=== PATIENT | male | born 1975 | race Caucasian/White ===

== ENCOUNTER 2021-10-20 10:02 | Emergency (ER) | payer SELFPAY ==
[2021-10-20 10:08] VITALS: BP 137/89; PULSE 87; RESP 16; TEMP 36.4; O2SAT 98
--- NOTE | 2021-10-20 10:15 | ED.GENADUL_ITS ---
Discharge Plan Disposition Patient Disposition: HOME Condition: Stable Discharge Details Clinical Impression: Lumbar strain Primary Care Provider: Wilman Vizcaino ED Provider: Krystina Garay Home Meds and New Rx's Prescriptions: New methocarbamol 500 mg tablet 500 mg PO Q6H PRN (Reason: muscle spasm) Qty: 14 RF: 0 prednisone 20 mg tablet See Rx Instructions .ROUTE .COMPLEX Qty: 18 RF: 0 Discharge Instructions Instructions: Low Back Strain (ED) Additional Instructions: Alternate ice and heat to the affected area(s) several times daily for 20 minutes at a time. Alternate tylenol and aleve as needed and directed for pain. Prescriptions for steroids and muscle relaxers have been sent electronically to your pharmacy. You were also given an oxycodone bottle to go to take for breakthrough pain not relieved with Tylenol or ibuprofen Follow-up with your primary care doctor in 1 week. Return to the emergency department with any worsening or new concerning symptoms such as fever, loss of bowel or bladder function, leg weakness or numbness, worsening pain or any other concerns. Stand Alone Forms: Work Release Discharge Data Discharge Physician: Krystina Garay Medical Decision Making 46-year-old male presents with right-sided lower back pain with radiation to his right thigh over the past 3 days after twisting his back when getting out of his truck 3 days ago. No cauda equina or urinary symptoms. Patient appears uncomfortable with antalgic gait. He is nontoxic-appearing. He has asymmetric SI joint posteriorly consistent likely with spasming of his lower back. He has some tenderness to palpation overlying the right lumbar region and right upper buttock. There is no overlying trauma, cellulitis or rash. He is otherwise neurovascularly intact. Suspect most likely lumbar strain. History and presentation does not appear consistent with cauda equina syndrome, disc herniation or epidural abscess. Do not feel indication for imaging or lab work at this time. Patient given a IM Toradol injection, oral steroids, pain medication and muscle. A prescription for steroids and muscle relaxer sent electronically to his pharmacy. He was given a for 10 bottle of oxycodone to go for breakthrough pain. Advised on importance of keeping flexible and ambulatory but no heavy lifting or prolonged sitting/lying. Advised to follow up with the primary care doctor for re-evaluation. Usual and customary return precautions given prior to discharge. HPI General Mode of arrival: ambulatory . Date/Time Provider Initiated Documentation: 10/20/21 10:02 . Limitations to Documentation: no limitations . Information obtained by: patient . HPI Narrative: Patient is a 46-year-old male who presents with right-sided lower back pain for the past 3 days that started after twisting to get out of his truck. 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 He states he spoke to his employer and they referred him for physical therapy and states he had manipulation of his lower back and now the pain is worse with radiation down the right and anterior thigh. He denies any pain below his knee. He has taken Aleve without relief. Last dose of Aleve at 3 AM. He denies any fever, nausea, vomiting, abdominal pain, urinary symptoms, bowel or bladder incontinence, leg weakness or numbness. He states the pain is mainly worse with walking, bending and standing. He denies any direct fall onto his back. Related Data Home Medications Medication Instructions Recorded Confirmed methocarbamol 500 mg PO Q6H PRN #14 tab 10/20/21 prednisone See Rx Instructions .ROUTE 10/20/21 .COMPLEX #18 tab Previous Rx's Medication Instructions Recorded methocarbamol 500 mg PO Q6H PRN #14 tab 10/20/21 prednisone See Rx Instructions .ROUTE 10/20/21 .COMPLEX #18 tab Allergies Allergy/AdvReac Type Severity Reaction Status Date / Time cephalexin [From Keflex] AdvReac Unverified 10/20/21 10:15 General Stated Complaint: Nk/Back Pain JEANA: 4 Review of Systems All systems reviewed & are unremarkable except as noted in HPI and below Constitutional Constitutional: Reports as per HPI, Denies chills and Denies fever(s) Eyes Eyes: Denies blurry vision ENT Ears, Nose, Mouth, and Throat: Denies dizziness, Denies sore throat and Denies throat swelling Cardiovascular Cardiovascular: Denies chest pain and Denies dyspnea Respiratory Respiratory: Denies cough and Denies dyspnea Gastrointestinal Gastrointestinal: Denies abdominal pain, Denies diarrhea and Denies vomiting Genitourinary Genitourinary: Denies hematuria and Denies dysuria Musculoskeletal Musculoskeletal: Reports back pain and Denies numbness Integumentary/Breasts Skin/Breast: Denies lesions and Denies rash Neurologic Neurologic: Denies dizziness, Denies localized weakness and Denies numbness Allergic/Immunologic Allergic/Immunologic: Denies throat swelling PFSH All Active Problems (Updated 10/20/21 @ 11:11 by Krystina Garay DO) Lumbar strain (Acute) Medical History (Updated 10/20/21 @ 11:11 by Krystina Garay DO) No significant past medical history Surgical History (Updated 10/20/21 @ 10:37 by Krystina Garay DO) H/O shoulder surgery History of foot surgery History of surgery on wrist Social History Smoking/Tobacco Use Status: Current every day Tobacco Type: cigarettes Smoking risk assessment performed?: Yes Substance use type: does not use Exam Const General: cooperative, healthy appearing and no acute distress HENMT Head: normal to inspection Face and sinus: normal facial exam Eyes General: appearance normal, both eyes and all related structures EOM: EOM intact bilaterally Neck Neck: normal visual inspection and No submandibular swelling Lymphatic: no lymphadenopathy noted Chest Chest: normal inspection of the chest and no tenderness Resp Effort & Inspection: normal respiratory effort and able to speak in complete sentences Auscultation: clear to auscultation bilaterally Cardio Rate: regular rate Rhythm: regular rhythm GI Inspection: normal to inspection Palpation: soft, not firm, not rigid and nontender Auscultation: normal bowel sounds Back/Spine/Pelvis Thoracic/Lumbar Spine: thoracic and lumbar spine normal to inspection Back/spine/pelvis image: 1. Tender to palpation. Evaluation of his pelvis posteriorly note that there appears to be a deviation of his left SI joint superiorly compared to the right SI joint likely consistent with spasming. There is no overlying cellulitis, rash or lesions, ecchymosis or hematoma. Skin General skin exam: no rashes or lesions noted Neuro General: patient alert, patient awake and patient oriented x3 Cognition: normal cognition Speech: speech normal Motor: muscle tone normal throughout Sensory Exam: no sensory deficits noted DTR's: Rt Patellar: 1+, Lt Patellar: 1+, Rt Ankle: 1+ and Lt Ankle: 1+ Plantar Reflexes: Equivocal: bilateral (negative babinski b/l ) Other: B/L DP/PT pulses intact. Extrem General: normal to inspection, full ROM, capillary refill normal, no calf tenderness bilaterally and no edema Psych Appearance: grossly normal Mental Status: mental status grossly normal Speech and Movement: speech and movement normal Affect: normal affect Course Vital Signs Vital signs: Vital Signs Temperature 97.5 F L 10/20/21 10:08 Pulse 87 10/20/21 10:08 Respiratory Rate 16 10/20/21 10:08 Blood Pressure 137/89 10/20/21 10:08 Pulse Oximetry 98 10/20/21 10:08 Temperature 97.5 F L 10/20/21 10:08 Temperature Source Skin 10/20/21 10:08 Pulse 87 10/20/21 10:08 Respiratory Rate 16 10/20/21 10:08 Respiratory Effort 10/20/21 10:08 Blood Pressure 137/89 10/20/21 10:08 Blood Pressure Position Sitting 10/20/21 10:08 Pulse Oximetry 98 10/20/21 10:08 Oxygen Delivery Method Room Air 10/20/21 10:08 Oxygen Flow Rate 0 10/20/21 10:08 Pain Level 10 10/20/21 10:08
[2021-10-20] MEDS: diazePAM 5 MG TAB PO (10:45)
[2021-10-20] MEDS: oxyCODONE 5 MG TAB PO (10:48)
[2021-10-20] MEDS: predniSONE 20 MG TAB 60 MG PO (10:48)
[2021-10-20] MEDS: Ketorolac 60 MG/2 ML VIAL IM (10:48)
== END 2021-10-20 11:37 | disposition home or self-care (01) ==
PROVIDERS: Emergency Provider Physician Assistant; PCP Internal Medicine
DX: S39.012A Strain of muscle, fascia and tendon of lower back, initial encounter (principal); X50.1XXA Overexertion from prolonged static or awkward postures, initial encounter
CPT/HCPCS: 96372; 99284; 99283; J1885; J7512

== ENCOUNTER 2024-03-08 09:27 | Emergency (ER) | payer BC, SELFPAY ==
[2024-03-08 09:36] VITALS: BP 127/110; PULSE 76; RESP 15; TEMP 36.6; O2SAT 96
[2024-03-08] MEDS: Ketorolac 15 MG/ML VIAL IVP (10:01)
[2024-03-08] MEDS: Normal Saline 1,000 ML 1000 ML IV (10:01)
--- NOTE | 2024-03-08 10:04 | ED.GENADUL_ITS ---
Discharge Plan Disposition Patient Disposition: Home Condition: Improving Discharge Details Chief Complaint: Male Reproductive Problem Clinical Impression: Abdominal pain, lower Primary Care Provider: Wilman Vizcaino ED Provider: Wai Gillespie Discharge Instructions Instructions: Abdominal Pain (ED) Additional Instructions: Please continue with ibuprofen and Tylenol as needed. Please return to the emergency room for any worsening symptoms. Follow-up close with your primary care physician. HPI General Date/Time Provider Initiated Documentation: 03/08/24 09:48 . HPI Narrative: 48-year-old male presents with several days of suprapubic discomfort and groin discomfort, denies flank pain nausea vomiting denies history of nephrolithiasis. Related Data Allergies Allergy/AdvReac Type Severity Reaction Status Date / Time cephalexin [From Keflex] AdvReac Other (See Unverified 03/08/24 09:40 Comment) General Stated Complaint: Male Reproductive Problem JEANA: 3 Review of Systems Narrative: Review of Systems Constitutional: negative Eyes: negative ENT: negative Cardiovascular: negative Respiratory: negative Gastrointestinal: negative : Pubic discomfort, testicular fullness/groin discomfort Musculoskeletal: negative Skin: negative Neurologic: negative Psych: negative Exam Narrative Exam Narrative: Physical Examination General: alert, awake, cooperative, resting comfortably, no acute distress HEENT: normocephalic, atraumatic; PERRL, EOM intact, conjunctiva normal; no nasal discharge; moist mucous membranes, oral and pharyngeal mucosa normal, tolerating secretions Neck: supple, trachea midline; full ROM Chest: normal to inspection Respiratory: normal respiratory effort, speaking in full sentences GI: abdomen soft, non-tender, non-distended; no palpable mass or hepatosplenome darlyn : Normal external genitalia, no appreciable inguinal hernias, normal testes normal lie normal rugae Skin: no lesions, rashes or trauma appreciated Neuro: AAOx3, normal speech, moving all extremities Extremities: Psych: Appropriate mood and affect Course Vital Signs Vital signs: Vital Signs Temperature 36.6 C 03/08/24 09:36 Pulse 76 03/08/24 09:36 Respiratory Rate 15 03/08/24 09:36 Blood Pressure 127/110 H 03/08/24 09:36 Pulse Oximetry 96 03/08/24 09:36 Temperature 36.6 C 03/08/24 09:36 Temperature Source Oral 03/08/24 09:36 Pulse 76 03/08/24 09:36 Respiratory Rate 15 03/08/24 09:36 Respiratory Effort Normal 03/08/24 09:39 Blood Pressure 127/110 H 03/08/24 09:36 Blood Pressure Position Sitting 03/08/24 09:36 Pulse Oximetry 96 03/08/24 09:36 Oxygen Delivery Method Room Air 03/08/24 09:36 Oxygen Flow Rate 0 03/08/24 09:36 Pain Level 9 03/08/24 09:36 Medical Decision Making 48-year male presents with suprapubic discomfort testicular discomfort and groin discomfort over the last several days, no flank pain no nausea no vomiting no fevers no chills, normal external genitalia no penile discharge, no appreciable inguinal hernias, abdomen soft nontender nondistended, consider nephrolithiasis versus abdominal wall hernia versus inguinal hernia versus less likely UTI or STI. Screening labs urinalysis CT abdomen pelvis fluids analgesia close reassessment 11: 3 7 patient resting comfortably no acute distress. Nondescript subcutaneous streaking and subcutaneous fat near symphysis pubis. No infectious symptoms patient is afebrile without a white count. No overlying skin changes to suggest cellulitis or deep space infection. No evidence of urinary infection. Patient resting comfortably no acute distress currently. Given home care instructions and strict return precautions Quality:SDOH Health Related Social Needs: 2 No Data to Display PFSH All Active Problems (Updated 03/08/24 @ 11:39 by Wai Gillespie MD) Abdominal pain, lower (Acute) Medical History (Updated 03/08/24 @ 11:39 by Wai Gillespie MD) No significant past medical history Surgical History (Updated 10/20/21 @ 10:37 by Krystina Garay DO) History of foot surgery History of surgery on wrist H/O shoulder surgery Social History Smoking/Tobacco Use Status: Current every day Tobacco Type: cigarettes Smoking risk assessment performed?: Yes Alcohol Intake: former Drug use: Daily Substance use type: marijuana Details: at night to help with sleep Housing: house
[2024-03-08 10:10] LABS: Abs Immature Grans 0.04 10^3/uL (0.0-0.06); Absolute Basophil Count 0.05 10^3/uL (0.0-0.2); Absolute Eosinophil Count 0.25 10^3/uL (0.0-0.7); Absolute Lymphocyte Count 1.96 10^3/uL (1.2-3.4); Absolute Monocyte Count 0.79 10^3/uL (0.1-0.8); Absolute Neutrophil Count 6.79 10^3/uL (1.2-6.7); Basophils % 0.5 %; Eosinophils % 2.5 %; HCT 45.3 % (40.0-50.0); Immature Grans % 0.4 %; Lymphocytes % 19.8 %; MCH 32.5 pg (27.0-33.0); MCHC 33.1 % (32.0-36.0); MCV 98 fL (80-95); MPV 8.9 fL (8.0-11.0); Neutrophils % 68.8 %; Platelet Count 221 10^3/uL (130-400); RBC 4.62 10^6/uL (4.36-5.78); RDW 12.6 % (11.8-14.1); RDW-SD 45.1 fL; WBC 9.88 10^3/uL (4.4-10.8)
[2024-03-08 10:32] LABS: ALT 25 U/L (16-63); AST 15 U/L (15-37); Albumin 4.1 g/dL (3.4-5.0); Alkaline Phosphatase 65 U/L (46-116); Anion Gap 4.5 mmol/L (3-11); BUN 15 mg/dL (7-18); Bilirubin, Total 0.3 mg/dL (0.2-1.0); CO2 30.5 mmol/L (21.0-32.0); Calcium 8.9 mg/dL (8.5-10.1); Chloride 104 mmol/L (98-107); Estimated GFR 93.42 (mL/min/1.73m2); Glucose 99 mg/dL (74-106); Sodium 139 mmol/L (136-145); Total Protein 7.3 g/dL (6.4-8.2)
[2024-03-08] MEDS: Normal Saline - Diluent 50 ML VIAL IJ (10:47)
[2024-03-08] MEDS: Omnipaque 350 MG/ML 500 ML BTL-Imaging package IV (10:49)
[2024-03-08 10:54] LABS: Bilirubin Negative (Negative); Blood Negative (Negative); Clarity Clear (Clear); Glucose Negative (Negative); Ketones Negative (Negative); Leukocyte Esterase Negative (Negative); Nitrite Negative (Negative); Urobilinogen 0.2 mg/dL (Up to 0.2)
--- NOTE | 2024-03-08 10:55 | DI.CT_ITS ---
Exam(s) CT ABDOMEN PELVIS W EXAM: CT ABDOMEN PELVIS W CLINICAL HISTORY: suprapubic and groin pain. TECHNIQUE: Imaging Protocol: Axial computed tomography images with coronal and sagittal reformatted images were created and reviewed CONTRAST MATERIAL: Intravenous: Omnipaque-350 100cc Oral: None COMPARISON: No exams were available for comparison FINDINGS: VISUALIZED LUNG BASES: No nodules nor pleural effusions evident. ABDOMEN: There is no ascites. LIVER: There are no focal hepatic lesions evident. No dilated intrahepatic ducts. GALLBLADDER/BILIARY: No obvious gallbladder pathology. CBD is not dilated. PANCREAS: No evidence of pancreatic mass nor dilatation of the pancreatic duct. SPLEEN: Spleen is not enlarged. No obvious intrasplenic lesions. Splenic and portal veins are paten t. ADRENALS: There are no significant adrenal masses. KIDNEYS:There is a solitary benign 6 in the lateral cortex of the left kidney which measures 1.6 x 1. 1 cm. Does not require follow-up. No solid renal masses. No calculi nor hydronephrosis.. ABDOMINAL AORTA: Abdominal aorta is not enlarged. LYMPH NODES:There is no retroperitoneal nor paraaortic adenopathy. ABDOMINAL WALL: No evidence of significant anterior abdominal wall nor inguinal hernia. However, the re is subcutaneous streaking in the fat tissue anterior to the symphysis pubis. This is just above t he level the dorsal aspect of the penis. There is no formed fluid collection at this level. GI: There is no evidence of bowel obstruction, free air, nor abscess. PELVIS: GI: No evidence of appendicitis.No evidence of sigmoid diverticulitis. LYMPH NODES: There is no intrapelvic nor inguinal adenopathy. REPRODUCTIVE: Prostate gland not enlarged. Seminal vesicles unremarkable. URINARY BLADDER: There is relatively uniform thickening of the urinary bladder wall although this may be related to under distension. OSSEOUS: No fractures and no significant osseous lesions. Sacroiliac joints unremarkable. However, there is chronic advanced this patient narrowing at L5-S1 level and moderate disc space narr owing at L3-4 and L4-5 levels. Also no listhesis at these levels. No pars defects. IMPRESSION: 1. There is symmetrical subcutaneous streaking in the subcutaneous fat anterior to the symphysis pubi s level. Appears inflammatory but without evidence of formed fluid collection. There is no radiopaq ue foreign body evident at this level.. No true hernia sac at this level. No inguinal hernias evide nt 2. 3. Chronic advanced disc space narrowing at L5-S1 level. Moderate disc space narrowing L4-5 and L3-4 levels. 4. RADIATION DOSE DELIVERED: 760.06mGy.cm Total DLP DATA REPOSITORY: All CT scans at this facility are submitted to the National Radiology Data Registry (NRDR) Dose Index Registry (DIR) with the [employer] (ACR). RADIATION OPTIMIZATION: All CT scans at this facility use at least one of these dose optimization te chniques: automated exposure control; mA and/or kV adjustment per patient size (includes targeted exa ms where dose is matched to clinical indication); or iterative reconstruction.
== END 2024-03-08 11:44 | disposition home or self-care (01) ==
PROVIDERS: Emergency Provider Emergency Medicine; PCP Internal Medicine
DX: R10.33 Periumbilical pain (principal); F17.210 Nicotine dependence, cigarettes, uncomplicated
CPT/HCPCS: 36415; 80053; 96374; 99285; 74177; 81003; 85025; 99284; J1885

== ENCOUNTER 2025-02-13 16:32 | Emergency (ER) | payer BC, SELFPAY ==
--- NOTE | 2025-02-13 16:30 | DI.RAD_ITS ---
Exam(s) XR CHEST 2V PA LATERAL EXAM: XR CHEST 2V PA LATERAL CLINICAL HISTORY: cough. TECHNIQUE: 2D digital imaging was performed. COMPARISON: No exams were available for comparison FINDINGS: 2 views: Heart size is normal. The mediastinum is not widened. Lungs are clear. No infiltrates nor pleural effusions. There 2 fusion plates across healed midshaft fracture of the left clavicle. IMPRESSION: No acute pulmonary findings. DATA REPOSITORY: RADIATION DOSE DELIVERED:
[2025-02-13 16:37] VITALS: BP 116/70; PULSE 101; RESP 20; TEMP 38.2; O2SAT 89
[2025-02-13 16:41] VITALS: BP 116/70; PULSE 101; RESP 20; TEMP 38.2; O2SAT 89
--- NOTE | 2025-02-13 16:45 | RT.EKG_ITS ---
APPROVED REPORT Exam: Resting ECG Reason for Exam: fever Patient Location: E HR:105 bpm ECG Measurements Heart Rate 105 AXIS RI 132 P 90 QRSd 97 QRS 221 QT 319 T 72 QTc 422 Conclusion Sinus tachycardia 105 right axis no stemi
--- NOTE | 2025-02-13 16:57 | ED.GENADUL_ITS ---
Discharge Plan Disposition Patient Disposition: Home Discharge Details Clinical Impression: Influenza A, Fever, Cough Primary Care Provider: Wilman Vizcaino ED Provider: Fransisco Olivier Home Meds and New Rx's Prescriptions: New promethazine 6.25 mg/5 mL syrup 12.5 mg PO Q6H PRN (Reason: cough) Qty: 120 0RF prednisone 20 mg tablet 40 mg PO DAILY 4 Days Qty: 8 0RF benzonatate 100 mg capsule 100 mg PO TID PRN (Reason: cough) Qty: 30 0RF ondansetron 4 mg tablet,disintegrating 4 mg PO Q6H PRN (Reason: nausea and vomiting) Qty: 30 0RF oseltamivir [Tamiflu] 75 mg capsule 75 mg PO BID 5 Days Qty: 10 0RF Discharge Instructions Instructions: Flu, Adult ED Additional Instructions: Flu test is positive today. Your first dose of Tamiflu was given Will also treat you with steroids and albuterol. Use the albuterol inhaler 2 puffs every 4 hours, with the spacer Cough medication and nausea medication was sent to the pharmacy to help with your symptoms Take medications as prescribed, make sure you are drinking lots of water. Take Motrin or Tylenol as needed for fever Please return to the emergency department with worsening symptoms, worsening cough, shortness of breath or low oxygen saturations HPI General Date/Time Provider Initiated Documentation: 02/13/25 16:42 . Limitations to Documentation: no limitations . Information obtained by: patient . HPI Narrative: 49-year-old gentleman with past medical history of tobacco abuse presents for evaluation of 3 days Cough and fever. Reports onset of symptoms 3 days ago. Reports cough productive of some thick mucus. Fever started the second day. Symptoms also associated with runny nose. He has had decreased appetite and poor sleep. He had an episode of vomiting this morning. No diarrhea. No sick contacts. Related Data Home Medications ?Medication ?Instructions ?Recorded ?Confirmed benzonatate 100 mg capsule 100 mg PO TID PRN cough #30 caps 02/13/25 ondansetron 4 mg disintegrating 4 mg PO Q6H PRN nausea and 02/13/25 tablet vomiting #30 tabs oseltamivir 75 mg capsule (Tamiflu) 75 mg PO BID 5 days #10 caps 02/13/25 prednisone 20 mg tablet 40 mg (2 x 20 mg) PO DAILY 4 days 02/13/25 #8 tabs promethazine 6.25 mg/5 mL oral 12.5 mg (10 mL) PO Q6H PRN cough 02/13/25 syrup #120 mL Previous Rx's ?Medication ?Instructions ?Recorded benzonatate 100 mg capsule 100 mg PO TID PRN cough #30 caps 02/13/25 ondansetron 4 mg disintegrating 4 mg PO Q6H PRN nausea and 02/13/25 tablet vomiting #30 tabs oseltamivir 75 mg capsule (Tamiflu) 75 mg PO BID 5 days #10 caps 02/13/25 prednisone 20 mg tablet 40 mg (2 x 20 mg) PO DAILY 4 days 02/13/25 #8 tabs promethazine 6.25 mg/5 mL oral 12.5 mg (10 mL) PO Q6H PRN cough 02/13/25 syrup #120 mL Allergies Allergy/AdvReac Type Severity Reaction Status Date / Time cephalexin (From Keflex) AdvReac Other (See Unverified 02/13/25 16:40 Comment) General Stated Complaint: RespSymp JEANA: 3 Exam Narrative Exam Narrative: Review of Systems: All systems reviewed & are unremarkable except as noted in HPI and below Well-developed, no acute distress febrile NCAT OP with exudates, mild cervical lymphadenopathy tachycardic, no murmur mild hypoxia, initially 89%> improved to 92% RA Nondistended abdomen No rashes or lesions. no focal neurologic deficits Course Vital Signs Vital signs: Vital Signs Temperature 38.2 C H 02/13/25 16:37 Pulse 101 H 02/13/25 16:37 Respiratory Rate 20 02/13/25 16:37 Blood Pressure 116/70 02/13/25 16:37 Pulse Oximetry 89 L 02/13/25 16:37 Temperature 38.2 C H 02/13/25 16:41 Temperature Source Oral 02/13/25 16:41 Pulse 101 H 02/13/25 16:41 Respiratory Rate 20 02/13/25 16:41 Blood Pressure 116/70 02/13/25 16:41 Blood Pressure Position Sitting 02/13/25 16:41 Pulse Oximetry 89 L 02/13/25 16:41 Oxygen Delivery Method Room Air 02/13/25 16:41 Oxygen Flow Rate 0 02/13/25 16:41 Pain Level 0 02/13/25 16:41 Lab/Test Results Lab/Test Results: 02/13/25 16:43 Blood Blood Culture - Pending 02/13/25 16:43 Blood Blood Culture - Pending Medical Decision Making Emergent evaluation of acute febrile illness and cough. Initial differential includes viral illness, pneumonia, doubt acute intra-abdominal process or UTI. Patient presents with cough and fever. Mild hypoxia initially, but repeat monitor does not demonstrate this. Medication given for fever resolution. Patient was also resuscitated with IV fluids. Lab work was reviewed, no leukocytosis or anemia. VBG without acute respiratory distress. No electrolyte derangement on CMP. Cardiac biomarkers not elevated. Procalcitonin is not elevated. Chest x-ray reviewed and there is no focal consolidation concerning for pneumonia. At this time I do not feel the patient is requiring antibiotics. His viral testing was positive for influenza A. First dose of Tamiflu given in the emergency department. Given his smoking history steroids and bronchodilator treatment was given. After the nebulizer, the patient does report improvement in cough. On reassessment, patient's vital signs have improved and he is feeling much better. Remainder of Tamiflu and steroids sent to the pharmacy in addition to medications for symptomatic care. Course of influenza discussed with the patient, hydration encouraged. Return precautions advised. Follow-up with PCP as needed. Quality:SDOH Health Related Social Needs: No Data to Display PFSH All Active Problems (Updated 02/13/25 @ 18:33 by Fransisco Olivier MD) Cough (Acute) Fever (Acute) Influenza A (Acute) Medical History (Updated 02/13/25 @ 18:33 by Fransisco Olivier MD) No significant past medical history Surgical History (Updated 10/20/21 @ 10:37 by Krystina Garay DO) History of foot surgery History of surgery on wrist H/O shoulder surgery Social History Smoking/Tobacco Use Status: Current every day Tobacco Type: cigarettes Smoking risk assessment performed?: Yes Alcohol Intake: former Drug use: Daily Substance use type: marijuana Details: at night to help with sleep Housing: house [employer] Have you Been Recently Intoxicated or Drunk Within the Last 30 days?: No Have you Ever Experienced Previous Episodes of Alcohol Withdrawal?: No Have you ever Experienced Withdrawal Seizures?: No Have you ever Experienced Delirium Tremens(DT)s?: No Have you ever undergone Alcohol Rehabilitation Treatment (i.e, inpt ot outpatient treatment programs)?: No Have you ever Experienced Blackouts?: No Have you ever Combined Alcohol with other Downers within the last 90 days?: No Have you ever Combined Alcohol with any other Substance of Abuse during the last 90 days?: No Result: 0
[2025-02-13] MEDS: Lactated Ringers 500 ML 1000 ML IV (17:17)
[2025-02-13] MEDS: ACETAMINOPHEN 1,000 MG/100 ML BAG 400 MG IVPB (17:17)
[2025-02-13 17:22] LABS: BE (Venous) 1 mmol/L (-2-3); HCO3 (Venous) 26 mmol/L (23-28); O2 Sat (Venous) 93 %; TCO2 (Venous) 22 mmol/L (24-29); pCO2 (Venous) 39 mmHg (41-51); pH (Venous) 7.43 (7.31-7.41); pO2 (Venous) 63 mmHg
[2025-02-13 17:28] LABS: Abs Immature Grans 0.01 10^3/uL (0.0-0.06); Absolute Basophil Count 0.03 10^3/uL (0.0-0.2); Absolute Eosinophil Count 0.01 10^3/uL (0.0-0.7); Absolute Monocyte Count 0.47 10^3/uL (0.1-0.8); Basophils % 0.7 %; Eosinophils % 0.2 %; HCT 44.6 % (40.0-50.0); HGB 14.9 g/dL (13.5-17.5); Immature Grans % 0.2 %; Lymphocytes % 6.8 %; MCHC 33.4 % (32.0-36.0); MCV 99 fL (80-95); MPV 9.2 fL (8.0-11.0); Monocytes % 10.6 %; Neutrophils % 81.5 %; Platelet Count 146 10^3/uL (130-400); RBC 4.52 10^6/uL (4.36-5.78); RDW 13.1 % (11.8-14.1); RDW-SD 47.5 fL; WBC 4.42 10^3/uL (4.4-10.8)
[2025-02-13 17:34] LABS: Prothrombin Time 10.1 sec (9.1-11.1)
[2025-02-13 17:43] LABS: ALT 29 U/L (16-63); AST 35 U/L (15-37); Albumin 3.8 g/dL (3.4-5.0); Alkaline Phosphatase 65 U/L (46-116); Anion Gap 8.2 mmol/L (3-11); BUN 7 mg/dL (7-18); Bilirubin, Total 0.3 mg/dL (0.2-1.0); CO2 25.8 mmol/L (21.0-32.0); Calcium 8.7 mg/dL (8.5-10.1); Chloride 101 mmol/L (98-107); Estimated GFR 92.84 (mL/min/1.73m2); Glucose 124 mg/dL (74-106); Potassium 3.9 mmol/L (3.5-5.1); Sodium 135 mmol/L (136-145); Troponin I 9 ng/L (<or=76)
[2025-02-13 17:44] VITALS: O2SAT 93
[2025-02-13] MEDS: Albuterol/Ipratropium 3 ML UPD VIAL UPD (17:47)
[2025-02-13 17:53] VITALS: BP 120/74; PULSE 93; O2SAT 93
[2025-02-13 18:02] LABS: Procalcitonin < 0.10 ng/mL
[2025-02-13 18:07] VITALS: PULSE 93; O2SAT 94
[2025-02-13 18:23] LABS: Troponin I 8 ng/L (<or=76)
[2025-02-13] MEDS: predniSONE 20 MG TAB 60 MG PO (18:41)
[2025-02-13] MEDS: Oseltamivir 75 MG CAP PO (18:41)
[2025-02-13] MEDS: Albuterol HFA 8 GM 60 PUFF INH IH (18:41)
[2025-02-13 18:54] VITALS: BP 116/65; PULSE 93; RESP 16; TEMP 37.8; O2SAT 94
== END 2025-02-13 19:21 | disposition home or self-care (01) ==
PROVIDERS: Emergency Provider Emergency Medicine; PCP Internal Medicine
DX: J10.1 Influenza due to other identified influenza virus with other respiratory manifestations (principal); R50.9 Fever, unspecified; R05.9 Cough, unspecified; R00.0 Tachycardia, unspecified; F17.210 Nicotine dependence, cigarettes, uncomplicated
CPT/HCPCS: 36415; 80053; 82805; 84145; 87040; 87426; 93005; 94640; 96365; 99285; 71046; 84484; 85025; 85610; 93010; J0131; J7512; J7620

== ENCOUNTER 2025-08-02 12:57 | Outpatient (CLI) | payer BC, SELFPAY ==
[2025-08-02 13:12] LABS: Abs Immature Grans 0.04 10^3/uL (0.0-0.06); HCT 40.6 % (40.0-50.0); HGB 13.4 g/dL (13.5-17.5); Immature Grans % 0.5 %; MCH 31.2 pg (27.0-33.0); MCHC 33.0 % (32.0-36.0); MCV 95 fL (80-95); MPV 8.9 fL (8.0-11.0); Platelet Count 238 10^3/uL (130-400); RBC 4.29 10^6/uL (4.36-5.78); RDW 13.2 % (11.8-14.1); RDW-SD 45.7 fL; WBC 8.58 10^3/uL (4.4-10.8)
[2025-08-02 13:16] LABS: ESR 6 mm/hr (0-15)
[2025-08-02 13:28] LABS: Hemoglobin A1C 5.7 % (<5.7)
[2025-08-02 13:49] LABS: Iron 67 ug/dL (65-175); Total Iron Binding Capacity 263 ug/dL (250-450)
[2025-08-02 14:10] LABS: ALT 33 U/L (16-63); AST 18 U/L (15-37); Albumin 3.8 g/dL (3.4-5.0); Alkaline Phosphatase 61 U/L (46-116); Anion Gap 6.4 mmol/L (3-11); BUN 18 mg/dL (7-18); Bilirubin, Total 0.3 mg/dL (0.2-1.0); CO2 30.6 mmol/L (21.0-32.0); Calcium 8.5 mg/dL (8.5-10.1); Calculated LDL 149 mg/dL (<100); Chloride 103 mmol/L (98-107); Cholesterol 247 mg/dL (<200); Estimated GFR 92.26 (mL/min/1.73m2); Ferritin 73 ng/mL (26-388); Glucose 96 mg/dL (74-106); HDL Cholesterol 67 mg/dL (>or=40); Potassium 3.8 mmol/L (3.5-5.1); Sodium 140 mmol/L (136-145); TSH (W/Ref FT4) 1.57 uIU/mL (0.36-3.74); Total Protein 6.9 g/dL (6.4-8.2); Triglyceride 155 mg/dL (<150); Vitamin B12 733 pg/mL (193-986)
[2025-08-02 14:20] LABS: C-Reactive Protein < 0.50 mg/dL (<or=0.5)
[2025-08-02 23:33] LABS: PSA, Screening 0.6 ng/mL (<=2.5)
[2025-08-03 09:48] LABS: Transferrin 208 mg/dL (201-352)
[2025-08-03 11:31] LABS: Lyme Ab w Rflx to Lyme Confirm Negative (Negative)
[2025-08-09 01:10] LABS: B. miyamotoi PCR Negative (Negative); Babesia divergens/MO-1 Negative (Negative); Ehrlichia muris eauclairensis Negative (Negative)
[2025-08-10 19:33] LABS: Testosterone, Free 45.2 pg/mL (35.0-155.0)
== END 2025-08-02 12:58 | disposition home or self-care (01) ==
LOC: LBO 12:57
PROVIDERS: Physical Therapy Assistant; PCP Nurse Practitioner Family; Visit Provider Nurse Practitioner Family
DX: Z13.220 Encounter for screening for lipoid disorders (principal); R23.1 Pallor; R23.2 Flushing; E03.9 Hypothyroidism, unspecified; E29.1 Testicular hypofunction; Z13.1 Encounter for screening for diabetes mellitus; Z12.5 Encounter for screening for malignant neoplasm of prostate; M35.3 Polymyalgia rheumatica
CPT/HCPCS: 36415; 80053; 80061; 84153; 84402; 84403; 85652; 87798; 82607; 82728; 83036; 83540; 83550; 84443; 84466; 85025; 86038; 86140; 86431; 86618

== ENCOUNTER 2025-08-18 06:27 | Day surgery (SDC) | payer BC, SELFPAY ==
[2025-08-18 06:36] VITALS: BP 108/74; PULSE 73; RESP 12; TEMP 36.7; O2SAT 96
[2025-08-18] MEDS: Na Phosphate Enema-Adult 133 ML BTL PR (06:45)
[2025-08-18] MEDS: Lactated Ringers 1,000 ML 80 ML IV (07:09)
--- NOTE | 2025-08-18 07:20 | W.ANESPRE ---
General Info Date of Service Date Performed: 08/18/25 Height: 5 ft 8 in Weight: 72.6 kg Body Mass Index (BMI): 24.3 Surgical Procedure: Operation Date: 08/18/25 07:35 Proposed Procedure Side Surgeon janes Smith MD Meds Allergies and Home Medications Allergies Allergy/AdvReac Type Severity Reaction Status Date / Time ibuprofen Allergy Intermediate Hives Verified 08/18/25 06:35 cephalexin (From Keflex) AdvReac Other (See Verified 08/18/25 06:35 Comment) Home Medication ?Medication ?Instructions ?Recorded bisacodyl 5 mg tablet,delayed 5 mg PO ONCE #4 tabs 08/02/25 release (Dulcolax (bisacodyl)) polyethylene glycol 3350 17 17 g PO ONCE #238 grams 08/02/25 gram/dose oral powder naproxen sodium 220 mg capsule 440 mg PO BID PRN 08/17/25 (Aleve) Current Visit Medications: Current Medications Generic Name Dose Route Start Last Admin Trade Name Freq PRN Reason Stop Dose Admin Ringer's Solution 1,000 mls @ 80 mls/hr 08/18/25 06:00 08/18/25 07:09 IV 08/18/25 23:59 80 mls/hr INFUSION SHAMIKA Administration IV Miscellaneous Supplies 1 each 08/18/25 06:00 Iv Access IV 08/18/25 23:59 DIRECTED SHAMIKA Sodium Biphosphate/Sodium Phosphate 133 ml 08/18/25 06:00 08/18/25 06:45 Na Phosphate Enema-Adult 133 Ml Btl MD 08/18/25 23:59 1 btl DIRECTED PRN Administration Sodium Chloride 0 ml 08/18/25 06:00 Normal Saline Flush 10 Ml Syr IV 08/18/25 23:59 PRN PRN Sodium Chloride 0 ml 08/18/25 06:00 Normal Saline 10 Ml Vial IJ 08/18/25 23:59 DIRECTED PRN Sterile Water 0 ml 08/18/25 06:00 Water,Injection,Sterile 10 Ml Vial IJ 08/18/25 23:59 DIRECTED PRN PFSH Active Problems Active Problems: Problem Status Onset Code Polymyalgia Acute M35.3 Tobacco dependence Acute F17.200 Medical History Medical History No significant past medical history Surgical History Surgical History History of foot surgery History of surgery on wrist H/O shoulder surgery Tobacco Smoking/Tobacco Use Status: Current every day Tobacco Type: cigarettes Passive smoking exposure: Yes Second hand exposure: Yes Alcohol Alcohol Intake: former Substance Use Substance use: Daily Substance use type: marijuana Details: at night to help with sleep; inhaled, last night. Vital Signs and Lab Results Vital Signs Most Recent Vital Signs in EMR: Most Recent Vital Signs Temp Pulse Resp BP Pulse Ox 36.7 C 73 12 108/74 96 08/18/25 06:36 08/18/25 06:36 08/18/25 06:36 08/18/25 06:36 08/18/25 06:36 Lab Results Complete Blood Count: WBC, (4.4-10.8) 8.58 10^3/uL 08/02/25, 12:55 RBC, (4.36-5.78) 4.29 10^6/uL L 08/02/25, 12:55 Hgb, (13.5-17.5) 13.4 g/dL L 08/02/25, 12:55 Hct, (40.0-50.0) 40.6 % 08/02/25, 12:55 Plt Count, (130-400) 238 10^3/uL 08/02/25, 12:55 Complete Metabolic Panel: Sodium, (136-145) 140 mmol/L 08/02/25, 12:55 Potassium, (3.5-5.1) 3.8 mmol/L 08/02/25, 12:55 Chloride, (98-107) 103 mmol/L 08/02/25, 12:55 Carbon Dioxide, (21.0-32.0) 30.6 mmol/L 08/02/25, 12:55 BUN, (7-18) 18 mg/dL 08/02/25, 12:55 Creatinine, (0.70-1.30) 1.0 mg/dL 08/02/25, 12:55 Est GFR (CKD-EPI 2020), (mL/min/1.73m2) 92.26 08/02/25, 12:55 Calcium, (8.5-10.1) 8.5 mg/dL 08/02/25, 12 Albumin, (3.4-5.0) 3.8 g/dL 08/02/25, : Glucose, (74-106) 96 mg/dL 08/02/25, : Hemoglobin A1c, (<5.7) 5.7 % 08/02/25, C-Reactive Protein, (<or=0.5) < 0.50 mg/dL 08/02/25, : Liver Function Panel: ALT, (16-63) 33 U/L 08/02/25, : AST, (15-37) 18 U/L 08/02/25, : Thyroid Panel: TSH, (0.36-3.74) 1.57 uIU/mL 08/02/25, : Imaging and Studies Imaging and Studies Study information below may be from another EMR and interpreted by another provider. Please see original notes in EMR for more complete details. EKG Summary: 02/13/25 Conclusion Sinus tachycardia 105 right axis no stemi Anesthesia Assessment and Plan Anesthesia History Personal History: No History of Anesthesia Complications Family History: No Family History of Anesthesia Complications Exercise Tolerance Exercise Tolerance: Metabolic Equivalents>4 Pertinent Negatives Pertinent Negatives: No Symptoms of GERD, No Major Cardiovascular Symptoms or Complaints, No Major Pulmonary Symptoms or Complaints and No History of CVA/TIA Cardiac & Pulmonary Exam Cardiac Exam: Normal S1/S2 Heart Sounds Pulmonary Exam: Clear Bilateral Breath Sounds Implantable Cardiac Device Does patient have a Pacemaker or an ICD?: No Airway Exam Known Difficult Airway: No Mallampati Class: 2 Mouth Opening: Normal (> 3cm) Thyromental Distance: Greater than 3 cm Neck Range of Motion: Full ROM Neck Circumference: Normal Teeth Condition: Normal Dentition ASA Classification ASA Score: ASA 2 Emergency Case?: No NPO Status NPO Status: NPO Clears >2 hours, Solids >8 hours Anesthesia Plan Resuscitation Status: Full Code Anesthesia Technique: General Anesthesia Airway Planned: Natural Airway Monitors Used: Standard Monitors
[2025-08-18 07:22] VITALS: BMI 24.3
--- NOTE | 2025-08-18 07:45 | W.PM.DSUDISC ---
Date of service: 08/18/25 Discharge Plan Disposition Patient Disposition: Home Condition: Stable Discharge Details Reason For Visit: screening colonoscopy Attending Provider: Anais Smith Primary Care Provider: Teddy Whitney Home Meds and New Rx's Prescriptions: Continued naproxen sodium [Aleve] 220 mg capsule 440 mg PO BID PRN Discontinued bisacodyl [Dulcolax (bisacodyl)] 5 mg tablet,delayed release (DR/EC) 5 mg PO ONCE Qty: 4 0RF Rx Instructions: Take per colonoscopy instructions provided by ordering providers office polyethylene glycol 3350 17 gram/dose powder 17 g PO ONCE Qty: 238 0RF Rx Instructions: Take per colonoscopy instructions provided by ordering providers office Discharge Instructions Additional Instructions: Your prep was excellent. Your colon is normal, zero polyps seen. Next screening colonoscopy is due in 5 years due to family history. Occasional diverticulosis seen, very mild. No diverticulitis (infection) present. Take a daily fiber supplement and eat a high fiber diet to prevent problems and progression of diverticulosis. Stand Alone Forms: Anesthesia Discharge Inst., Stevenson Weiss ([facility]) Activity:: Activity as Tolerated Diet:: As Tolerated Discharge Orders Discharge Orders: Discharge Order (Routine); Ordered 08/18/25 Ordered By: Anais Smith
--- NOTE | 2025-08-18 07:47 | W.COLOREPORT ---
Date of service: 08/18/25 Time of Service: 07:47 Colonoscopy Report Date of procedure: 08/18/25 Pre-op diagnosis general: Screening for colorectal cancer Post-op diagnosis procedure note: same Procedure: Colonoscopy Surgeon: Anais Smith Anesthesia Type: General:No Airway Estimated blood loss (mL): 0 Pathology: none sent Complications: None Indications: screening for colorectal cancer, mother with colon cancer Prep: Miralax/Dulcolax (excellent) Procedure Description: Informed consent was obtained and the patient was taken to the procedure area. The patient was placed in left lateral decubitus position on the procedure table. Timeout was performed. Anesthesia was induced. A lubricated colonoscope was inserted through the anus and passed to the cecum. The cecum was identified by the ileocecal valve and the appendiceal orifice. The scope was then slowly withdrawn and the colonic and rectal mucosa examined. TI intubated and examined. It appears normal. There are no colon or rectal mass lesions, polyps, AVMs. There is no inflammatory change. Occasional small mouthed diverticula seen. The scope was retroflexed in the anorectal junction examined. Uncomplicated internal hemorrhoids present. Assessment and plan: screening for colorectal cancer family history of colon cancer in mother and maternal grandfather Normal colonoscopy. Next screening colonoscopy will be due in 5 years due to family history.
[2025-08-18 07:50] VITALS: BP 104/80; PULSE 85; RESP 16; TEMP 36.7; O2SAT 95
--- NOTE | 2025-08-18 08:05 | W.ANESPOSTOP ---
Postoperative Evaluation Date, Time and Location Date Performed: 08/18/25 Time Performed: 07:50 Patient Location: Day Surgery Unit Vital Signs Most Recent Imported Vital Signs: Most Recent Vital Signs Temp Pulse Resp BP Pulse Ox 36.7 C 85 16 104/80 95 08/18/25 07:50 08/18/25 07:50 08/18/25 07:50 08/18/25 07:50 08/18/25 07:50 Pain Score Most Recent Pain Score: Most Recent Pain Score Pain Level 0 08/18/25 07:50 Assessment Mental Status: Awake (Alert & Oriented to Patient Baseline) Airway and Respiratory Function: Patent airway with normal (patient baseline) respiratory exam Cardiovascular Function: Hemodynamically Stable Hydration Status: Adequately Hydrated Nausea & Vomiting: No Nausea or Vomiting Pain: Pt. Denies Any Pain Peripheral Nerve Block: Patient did not receive a nerve block
[2025-08-18 08:12] VITALS: BP 107/73; PULSE 70; RESP 16; TEMP 36.7; O2SAT 97
== END 2025-08-18 08:19 | disposition home or self-care (01) ==
PROVIDERS: PCP Nurse Practitioner Family; Visit Provider Surgery
PROC: 0DJD8ZZ Inspection of Lower Intestinal Tract, Via Natural or Artificial Opening Endoscopic (ICD-10-PCS; CPT 45378; principal; 2025-08-18 07:30)
DX: Z12.11 Encounter for screening for malignant neoplasm of colon (principal); Z80.0 Family history of malignant neoplasm of digestive organs
CPT/HCPCS: 45378; J2704